=== PATIENT | female | born 1950 | race Caucasian/White ===

== ENCOUNTER 2019-02-28 10:50 | Emergency (ER) | payer MEDICARE, OTHER ==
[~2019-02-28] VITALS: Ht 160 cm; Wt 60.5 kg
[2019-02-28 10:58] VITALS: BP 112/56; PULSE 73; RESP 16; Ht 160 cm; Wt 60.5 kg
--- NOTE | 2019-02-28 12:18 | ERD ---
ER Documentation Chief Complaint Chief Complaint pelvic pain x 1 week , vaginal dryness HPI 68-year-old female with history of diabetes, presents to the emergency department, complaining of burning pain in the vaginal area, associated with white discharge. The patient denies fever, chills. No reports of abdominal pain, no nausea or vomiting. ROS All systems reviewed and are negative except as per history of present illness. PMhx/Soc History of diabetes Medical and Surgical Hx: pt denies Medical Hx, pt denies Surgical Hx Hx Alcohol Use: No Hx Substance Use: No Hx Tobacco Use: No Smoking Status: Never smoker FmHx Family History: diabetes Physical Exam Vitals Vital Signs Date Temp Pulse Resp B/P (MAP) Pulse Ox O2 O2 Flow FiO2 Time Delivery Rate 02/28/19 98.2 73 16 112/56 99 10:58 (74) Physical Exam Patient alert, oriented, vital signs stable. HEAD: Normocephalic, atraumatic. EYES: PERRLA, EOMI, Sclera and conjunctiva appear normal. NOSE: Clear and patent nostrils. EARS: Canals clear, tympanic membranes WNL. MOUTH: normal lips and tongue, no oral lesions. THROAT: Normal oropharynx, no tonsillar exudates. NECK: Supple, No lymphadenopathy. Full ROM without pain or tenderness. HEART: RRR, no rubs, murmurs, clicks or gallops. LUNGS: Clear to auscultation. ABDOMEN: Soft, non-tender without masses or hepatosplenomegaly. : Significant vulvar erythema with non-malodorous white discharge EXTREMITIES: No edema bilaterally. BACK: Full ROM, no deformity, normal back exam NEURO: Cranial nerves grossly intact, no motor or sensory deficit SKIN: No rashes, no petechia. Results 24 hrs Laboratory Tests Test 02/28/19 12:21 Urine Color YELLOW Urine Clarity SLIGHTLY CLOUDY Urine pH 5.0 Urine Specific [place] 1.036 Urine Ketones TRACE mg/dL Urine Nitrite NEGATIVE mg/dL Urine Bilirubin NEGATIVE mg/dL Urine Urobilinogen NEGATIVE mg/dL Urine Leukocyte Esterase NEGATIVE Gwen/ul Urine Microscopic RBC 1 /HPF Urine Microscopic WBC 3 /HPF Urine Squamous Epithelial Cells FEW /HPF Urine Bacteria FEW /HPF Urine Hemoglobin NEGATIVE mg/dL Urine Glucose 3+ mg/dL Urine Total Protein NEGATIVE mg/dl Procedures/MDM Vital signs stable. Differential diagnosis considered include UTI, cystitis, yeast infection, vaginitis, bacterial vaginosis, pelvic inflammatory disease, STI's . Less likely malignancy or acute abdomen. During the ED course the patient remained stable, no new complaints. Results and clinical impression discussed with the patient who agrees with management. The patient is stable to be treated outpatient and will be discharged home; some side effects of prescribed medications (headache, rash, nausea, vomiting, diarrhea, drowsiness, habituation, bleeding, hypertension, interactions with other medications) were reviewed. Follow up with the primary care provider in the next 48h has been recommended. If symptoms persist, worsen or new symptoms develop, then patient should return to the ED immediately. Instructions explained and given directly by me to the patient with acknowledgment and demonstrated understanding. Disclaimer: Inadvertent spelling and grammatical errors are likely due to EHR/dictation software use and do not reflect on the overall quality of patient care. Also, please note that the electronic time recorded on this note does not necessarily reflect the actual time of the patient encounter. Departure Diagnosis: Primary Impression: Vaginal yeast infection Condition: Stable Additional Instructions: Muchas farshad por [facility] para gordillo servicio. Esperamos que en gordillo visita a la elizabeth de emergencia gordillo problema medico haya sido solucionado y que se sienta mucho mejor. Para estar seguros que gordillo mejoria sigue en proceso, le pedimos el favor de hacer annette talisha de seguimiento medico con gord[place] doctor primario en los proximos 2-4 wilson. Lleve con usted estos documentos y las medicinas recetadas. Si leslee sintomas empeoran, NO SE ESPERE, por favor regrese a elizabeth de emergencia INMEDIATAMENTE. En zara que usted no tenga un mdico de atencin primaria: Llame al mdico o clnica comunitaria de referencia que aparece abajo david las horas de consultorio para hacer annette talisha para que le vean. CLINICAS: [facility] [phone] [facility] 860 [phone] [facility] [phone] [facility] [phone] [address] [facility] [phone] [facility]. [phone] TOMMY GOODMAN MD February 28, 2019 12:18
[2019-02-28] MEDS ORDERED: FLUC150T PO (12:47)
[2019-02-28] MEDS ORDERED: NYST15CR36 TOP (12:47)
== END 2019-02-28 13:10 | disposition home or self-care (01) ==
LOC: FTE 10:50
DX: B37.3 Candidiasis of vulva and vagina (principal)
CPT/HCPCS: 81001; 81003; 99283